=== PATIENT | female | born 1980 | race Caucasian/White ===

== ENCOUNTER 2017-05-03 14:40 | Emergency (ER) | payer OTHER ==
[~2017-05-03] VITALS: Ht 157.5 cm; Wt 56.7 kg
[~2017-05-03 14:40] MED LIST: ACHD5005 PO; AZIT-21 PO; CEPH500C PO; ESTR-19 PO; GERD med; HYDR-2889 PO; HYDR-3583 PO; HYDR-707 PO; IBP800T PO; NAPR-243 PO; PRM5C60 TOP; SULF-222 PO; TRIA16.5 NS
--- OUTSIDE RECORDS SUMMARY | 2017-05-03 14:48 | XMS REPORT | Continuity of Care Document ---
Author Author [facility] Organization [facility] Address Unknown Phone Unavailable Allergies Medications Problems Procedures Results Encounters ACCT No. Visit Date/Time Discharge Status Pt. Type Provider Facility Loc./Unit Complaint [id number] 06/28/2013 02:23:00 2012 02:50:00 DIS Emergency [id number] 06/17/2013 11:17:00 2012 23:59:59 CLS Outpatient [id number] 04/02/2013 13:29:00 2012 15:06:00 DIS Emergency [id number] 03/13/2013 13:21:00 2012 14:45:00 DIS Emergency
[2017-05-03] MEDS ORDERED: NS IV 1000 ML 1,000 ML IV ONE (15:12)
--- NOTE | 2017-05-03 15:12 | ED Fall/Injury ---
General Chief Complaint: Trauma-Non Activation Stated Complaint: HEAD/LT WRIST PAIN,EYE ISSUES Source: patient, family (brother and his girlfriend.) Exam Limitations: no limitations History of Present Illness Time seen by provider: 15:03 Initial Comments Patient has ER by private conveyance with her brother and brother's girlfriend with chief complaint of left wrist pain and a fall yesterday afternoon. She is not sure why she fell she thinks she may have had low blood sugar. She says she is diagnosed 2 years ago in [place] with type 2 diabetes. She did not check her blood sugar at the time but she does know when her blood sugars get low she starts acting loopy and has had falls before. She had a little nausea earlier. She states she's had DKA in the past. She is not on any medications at the time and has been drinking a lot of Gatorade because she's felt nausea and poorly like she might be dehydrated. She does not drink sugar-free Gatorade. She is not sure what her A1c is. She does not have a PCP she has not established that since moving here from [place]. She is not presently having any nausea. No headaches and states she did not hit her head. She did however remain unconscious for up to a minute according to her brother. She says right now the only thing hurting his her left wrist. No fevers or chills that she has had frequency of urine and some diarrhea in the last 3 or 4 days. She has had a modestly productive cough for the past several days as well. She has attributed this to her asthma for which she has a rescue inhaler but was previously on an inhaled steroid. She is not short of breath at this time. She reports occasional alcohol intake with the last drink April 25. She smokes a quarter pack a day as well as occasional marijuana cigarettes. She utilizes IV methamphetamine with the last dose approximately 3-4 months ago. She has tattoos that are not from a licensed parlor in the last time she was checked for hepatitis was prior to leaving the getting the tattoos. Her previous partner had hepatitis. Patient relates she's had a hysterectomy including her tubes and ovaries secondary to cervical cancer and has been in remission for over 5 years. She also is known to have a nodule in her right low and she believes that was seen before that she was told to follow up on but she never did. Allergies and Home Medications Allergies Coded Allergies: Penicillins (Verified Allergy, 05/20/12) diphenhydramine HCl (Verified Allergy, 05/20/12) doxycycline (Verified Allergy, 05/20/12) Home Medications Azithromycin 250 Mg Tab, 2 TAB PO DAILY, #10 FOR INFECTION Prescribed by: GILA FLOOD on 06/28/13 0246 Triamcinolone Acetonide 16.5 Gm [place], 16.5 GM NS BID, #1 FOR SINUSES Prescribed by: GILA FLOOD on 06/28/13 0246 Constitutional: No chills, No diaphoresis, No fever, malaise Eyes: See HPI Ears, Nose, Mouth, Throat: see HPI Respiratory: see HPI, cough, No short of breath, No wheezing Cardiovascular: see HPI, No chest pain, No edema, No palpitations, syncope Gastrointestinal: No abdominal pain, No constipation, No diarrhea, nausea ( yesterday), No vomiting Genitourinary: No discharge, No dysuria, frequency, No hematuria, No incontinence Musculoskeletal: see HPI, No back pain, No joint pain Skin: No pruritus, No rash Psychiatric/Neurological: Denies Headache, Denies Numbness Past Rdbkcew-Kkvbyv-Uisdap Hx Patient Social History Alcohol Use: Occasionally Uses Recreational Drug Use: Yes (last used 3-4 months ago) Drug of Choice: methamphetamine Smoking Status: Current Everyday Smoker Type Used: Cigarettes (.25 ppd) Recent Foreign Travel: No Contact w/Someone Who Travel: No Seasonal Allergies Seasonal Allergies: Yes Surgeries HX Surgeries: Yes (LEEPS, CERVICAL CRYOTHERAPY) Respiratory Hx Respiratory Disorders: No Cardiovascular Hx Cardiac Disorders: No Neurological Hx Neurological Disorders: No Reproductive System Female Reproductive Disorders: Endometriosis [employer] History: Hysterectomy Genitourinary Hx Genitourinary Disorders: Yes (CERVICAL CANCER--S/P SURGERY, NO CHEMO. NO RADIATION) Genitourinary Disorders: UTI-Chronic Gastrointestinal Hx Gastrointestinal Disorders: Yes (CHRONIC PELVIC/ABDOMINAL PAIN) Musculoskeletal Hx Musculoskeletal Disorders: Yes (CHRONIC NECK PAIN/SPASMS) Endocrine Hx Endocrine Disorders: No HEENT HX ENT Disorders: No Cancer Hx Cancer: Yes Cancer: Cervical Psychosocial Hx Psychiatric Problems: No Integumentary HX Skin/Integumentary Disorder: No Blood Transfusions Hx Blood Disorders: No Physical Exam Vital Signs Vital Sign - Last 12Hours 05/03/17 15:09 Temp 97.9 Pulse 92 Resp 18 B/P (MAP) 120/80 Pulse Ox 99 Capillary Refill : General Appearance: WD/WN, no apparent distress HEENT: PERRL/EOMI, normal ENT inspection, pharynx normal Neck: normal inspection, tender midline (soft tissue especially around sternocleidomastoid) Cardiovascular: normal peripheral pulses, regular rate, rhythm, no edema Respiratory: lungs clear, normal breath sounds, no respiratory distress, no accessory muscle use Peripheral Pulses: 3+ Radial Pulses (R), 3+ Radial Pulses (L) Gastrointestinal: normal bowel sounds, non tender, soft Back: normal inspection, no vertebral tenderness Extremities: normal inspection, no pedal edema, normal capillary refill Neurologic/Psychiatric: alert, oriented x 3 Skin: normal color, warm/dry Lymphatic: no adenopathy Progress/Results/Core Measures Results/Orders Lab Results Laboratory Tests Test 05/03/17 14:58 05/03/17 15:42 Range/Units White Blood Count 6.8 4.3-11.0 10^3/uL Red Blood Count 4.63 4.35-5.85 10^6/uL Hemoglobin 12.9 11.5-16.0 G/DL Hematocrit 40 35-52 % Mean Corpuscular Volume 87 80-99 FL Mean Corpuscular Hemoglobin 28 25-34 PG Mean Corpuscular Hemoglobin Concent 32 32-36 G/DL Red Cell Distribution Width 13.6 10.0-14.5 % Platelet Count 248 130-400 10^3/uL Mean Platelet Volume 12.0 H 7.4-10.4 FL Neutrophils (%) (Auto) 63 42-75 % Lymphocytes (%) (Auto) 26 12-44 % Monocytes (%) (Auto) 10 0-12 % Eosinophils (%) (Auto) 1 0-10 % Basophils (%) (Auto) 1 0-10 % Neutrophils # (Auto) 4.2 1.8-7.8 X 10^3 Lymphocytes # (Auto) 1.7 1.0-4.0 X 10^3 Monocytes # (Auto) 0.7 0.0-1.0 X 10^3 Eosinophils # (Auto) 0.1 0.0-0.3 10^3/uL Basophils # (Auto) 0.0 0.0-0.1 10^3/uL Sodium Level 141 135-145 MMOL/L Potassium Level 3.7 3.6-5.0 MMOL/L Chloride Level 106 98-107 MMOL/L Carbon Dioxide Level 29 21-32 MMOL/L Anion Gap 6 5-14 MMOL/L Blood Urea Nitrogen 6 L 7-18 MG/DL Creatinine 0.74 0.60-1.30 MG/DL Estimat Glomerular Filtration Rate > 60 BUN/Creatinine Ratio 8 Glucose Level 91 70-105 MG/DL Calcium Level 9.2 8.5-10.1 MG/DL Phosphorus Level 3.3 2.3-4.7 MG/DL Magnesium Level 2.1 1.8-2.4 MG/DL Total Bilirubin 0.3 0.1-1.0 MG/DL Aspartate Amino Transf (AST/SGOT) 17 5-34 U/L Alanine Aminotransferase (ALT/SGPT) 24 0-55 U/L Alkaline Phosphatase 90 40-136 U/L C-Reactive Protein High Sensitivity 0.11 0.00-0.50 MG/DL Total Protein 7.2 6.4-8.2 GM/DL Albumin 4.0 3.2-4.5 GM/DL Serum Alcohol < 10 <10 MG/DL Urine Color YELLOW Urine Clarity CLEAR Urine pH 8 5-9 Urine Specific [place] 1.010 L 1.016-1.022 Urine Protein NEGATIVE NEGATIVE Urine Glucose (UA) NEGATIVE NEGATIVE Urine Ketones NEGATIVE NEGATIVE Urine Nitrite NEGATIVE NEGATIVE Urine Bilirubin NEGATIVE NEGATIVE Urine Urobilinogen NORMAL NORMAL MG/DL Urine Leukocyte Esterase 2+ H NEGATIVE Urine RBC (Auto) NEGATIVE NEGATIVE Urine RBC NONE /HPF Urine WBC 10-25 H /HPF Urine Squamous Epithelial Cells 2-5 /HPF Urine Crystals NONE /LPF Urine Bacteria TRACE /HPF Urine Casts NONE /LPF Urine Mucus NEGATIVE /LPF Urine Culture Indicated YES Urine Test NEGATIVE NEGATIVE Urine Opiates Screen NEGATIVE NEGATIVE Urine Oxycodone Screen NEGATIVE NEGATIVE Urine Methadone Screen NEGATIVE NEGATIVE Urine Propoxyphene Screen NEGATIVE NEGATIVE Urine Barbiturates Screen NEGATIVE NEGATIVE Ur Tricyclic Antidepressants Screen NEGATIVE NEGATIVE Urine Phencyclidine Screen NEGATIVE NEGATIVE Urine Amphetamines Screen NEGATIVE NEGATIVE Urine Methamphetamines Screen NEGATIVE NEGATIVE Urine Benzodiazepines Screen NEGATIVE NEGATIVE Urine Cocaine Screen NEGATIVE NEGATIVE Urine Cannabinoids Screen POSITIVE H NEGATIVE My Orders Orders - CHAPARRITA GROVER Alcohol (05/03/17 15:12) Cbc With Automated Diff (05/03/17 15:12) Comprehensive Metabolic Panel (05/03/17 15:12) Hs C Reactive Protein (05/03/17 15:12) Drug Screen Stat (Urine) (05/03/17 15:12) Hcg,Qualitative Urine (05/03/17 15:12) Lactic Acid Analyzer (05/03/17 15:12) Magnesium (05/03/17 15:12) Ua Culture If Indicated (05/03/17 15:12) Phosphorus (05/03/17 15:12) Chest Pa/Lat (2 View) (05/03/17 15:12) Saline Lock/Iv-Start (05/03/17 15:12) Ns Iv 1000 Ml (Sodium Chloride 0.9%) (05/03/17 15:12) Acetone,Urine (05/03/17 15:12) Ibuprofen Tablet (Motrin Tablet) (05/03/17 15:30) Wrist, Left, 3 Views Or More (05/03/17 15:54) Urine Culture (05/03/17 15:42) Medications Given in ED Current Medications Medications Dose Ordered Sig/Caitlyn Route Start Time Stop Time Status Last Admin Dose Admin Ibuprofen 800 mg ONCE ONCE PO 05/03/17 15:30 05/03/17 15:31 DC 05/03/17 15:40 800 MG Sodium Chloride 1,000 ml @ 0 mls/hr Q0M ONCE IV 05/03/17 15:12 05/03/17 15:16 DC 05/03/17 15:41 0 MLS/HR Vital Signs/I&O Vital Sign - Last 12Hours 05/03/17 05/03/17 15:09 15:32 Temp 97.9 97.9 Pulse 92 92 Resp 18 18 B/P (MAP) 120/80 120/80 (93) Pulse Ox 99 99 Progress Note : Time: 15:46 Progress Note She is very thin for a type II diabetic as well as Young. With her history of uncontrolled diabetes I am suspicious she may have type I as well and her frequency and nausea may be point to her heading towards DKA. If not she could also be expressing a UTI from uncontrolled diabetes which could explain her symptoms. Diagnostic Imaging Diagonstic Imaging: Xray Plain Films/CT/US/NM/MRI: other (wrist left) Comments [facility] [facility] [place] [place] NAME: LUCINDA SADLER MED REC#: [id number] PT STATUS: REG ER : 1980 PHYSICIAN: CAHPARRITA GROVER MD ADMIT DATE: 05/03/17/ER Draft Date of Exam:05/03/17 WRIST, LEFT, 3 VIEWS OR MORE INDICATION: Injury to left wrist. EXAMINATION: AP, oblique, and lateral views of the left wrist are obtained. FINDINGS: No fracture or acute bony abnormality is seen. IMPRESSION: Negative left wrist. Dictated on workstation # [id number] Dict: 05/03/17 1601 Trans: 05/03/17 1603 [facility] [id number] Interpreted by: ANN ESTRADA MD Electronically signed by: Reviewed: Reviewed by Me Diagonstic Imaging: Xray Plain Films/CT/US/NM/MRI: chest Comments NAME: LUCINDA SADLER MED REC#: [id number] PHYSICIAN: CHAPARRITA GROVER MD CC: MYRTLE GUNTER MD; CHAPARRITA GROVER Page 1 of 1 RADIOLOGY REPORT [facility]IA [place], [place] CC: MYRTLE GUNTER MD; CHAPARRITA GROVER Page 1 of 1 RADIOLOGY REPORT NAME: LUCINDA SADLER MED REC#: [id number] PT STATUS: REG ER : 1980 PHYSICIAN: CHAPARRITA GROVER MD ADMIT DATE: 05/03/17/ER Signed Date of Exam: 05/03/17 CHEST PA/LAT (2 VIEW) PA and lateral views of the chest Indication: Fall. comparison 12/27/12 Findings: There is a 5 mm calcified, in the right lung base similar to 2013 exam with no significant change. Otherwise the lungs are clear. The heart size is normal. There is no effusion or pneumothorax The mediastinum and shital appear unremarkable. Impression: No acute process. Dictated by: Dictated on workstation # [id number] Dict: 05/03/17 1558 Trans: 05/03/17 1559 Interpreted by: MYRTLE GUNTER MD Electronically signed by: MYRTLE GUNTER MD 05/03/17 1559 Reviewed: Reviewed by Me Departure Impression Impression: Primary Impression: Fall Qualified Codes: W19.XXXA - Unspecified fall, initial encounter Additional Impressions: Syncope Qualified Codes: R55 - Syncope and collapse UTI (urinary tract infection) Qualified Codes: N30.00 - Acute cystitis without hematuria Disposition: 01 HOME, SELF-CARE Condition: Stable Departure-Patient Inst. Decision time for Depature: 16:25 Referrals: NO,LOCAL PHYSICIAN (PCP) Primary Care Physician Patient Instructions: Urinary Tract Infection, Adult (DC) Add. Discharge Instructions: You have a urinary tract infection. If you've had these multiple times recently this would require more workup by your primary care physician. One possible cause of your UTI and passing out would be blood sugars that are out of control and elevated. The Reason you passed out is not entirely understood at this time however a likely scenario is that your sugars might have plummeted low or you might have gotten dehydrated from having high sugars that can causes you to urinate too frequently and become dehydrated. Getting your sugars under better control will probably help alleviate both the frequent UTIs and the risk of passing out and falling. Make sure you are drinking plenty of fluids and avoiding sugars and carbohydrates. Establish with a primary care physician in follow-up within the next 2 weeks if possible. Return to the ER if you're having fevers or chills or nausea and vomiting or any other worrisome symptoms. Take the antibiotics twice a day with food until complete. All discharge instructions reviewed with patient and/or family. Voiced understanding. Scripts Albuterol Sulfate (VENTOLIN HFA) 1 Puff Puff 2 PUFF IH Q4H Y for WHEEZING, #1 EACH 0 Refills 1 PUFF = 90 MCG Prov: CHAPARRITA GROVER 05/03/17 Cephalexin (Keflex) 500 Mg Capsule 500 MG PO BID for 7 Days, #14 CAP 0 Refills Prov: CHAPARRITA GROVER 05/03/17 CHAPARRITA GROVER May 03, 2017 15:11
[2017-05-03 15:20] LABS: BASOPHILS % (AUTO) 1 % (0-10); EOSINOPHILS # (AUTO) 0.1 10^3/uL (0.0-0.3); EOSINOPHILS % (AUTO) 1 % (0-10); LYMPHOCYTES # (AUTO) 1.7 X 10^3 (1.0-4.0); LYMPHOCYTES % (AUTO) 26 % (12-44); MEAN CORPUSCULAR HEMOGLOBIN 28 PG (25-34); MEAN CORPUSCULAR HGB CONC 32 G/DL (32-36); MEAN CORPUSCULAR VOLUME 87 FL (80-99); MONOCYTES # (AUTO) 0.7 X 10^3 (0.0-1.0); MONOCYTES % (AUTO) 10 % (0-12); NEUTROPHILS # (AUTO) 4.2 X 10^3 (1.8-7.8); NEUTROPHILS % (AUTO) 63 % (42-75); PLATELET COUNT 248 10^3/uL (130-400); RED BLOOD COUNT 4.63 10^6/uL (4.35-5.85); RED CELL DISTRIBUTION WIDTH 13.6 % (10.0-14.5); WHITE BLOOD COUNT 6.8 10^3/uL (4.3-11.0)
[2017-05-03] MEDS ORDERED: IBUPROFEN 800 MG (MOTRIN) TAB PO ONE (15:30)
[2017-05-03 15:34] LABS: ALANINE AMINOTRANSFERASE 24 U/L (0-55); ALCOHOL < 10 MG/DL (<10); ANION GAP 6 MMOL/L (5-14); ASPARTATE AMINO TRANSFERASE 17 U/L (5-34); BILIRUBIN,TOTAL 0.3 MG/DL (0.1-1.0); BLOOD UREA NITROGEN 6 MG/DL (7-18); BUN/CREATININE RATIO 8; CALCIUM 9.2 MG/DL (8.5-10.1); CARBON DIOXIDE 29 MMOL/L (21-32); CHLORIDE 106 MMOL/L (98-107); CREATININE SERUM 0.74 MG/DL (0.60-1.30); GFR ESTIMATED > 60; GLUCOSE 91 MG/DL (70-105); MAGNESIUM 2.1 MG/DL (1.8-2.4); PHOSPHORUS 3.3 MG/DL (2.3-4.7); POTASSIUM 3.7 MMOL/L (3.6-5.0); SODIUM 141 MMOL/L (135-145); TOTAL PROTEIN 7.2 GM/DL (6.4-8.2); hs C REACTIVE PROTEIN 0.11 MG/DL (0.00-0.50)
[2017-05-03 15:50] LABS: BILIRUBIN,URINE NEGATIVE (NEGATIVE); KETONES,URINE NEGATIVE (NEGATIVE); LEUKOCYTE ESTERASE ,URINE 2+ (NEGATIVE); NITRITE,URINE NEGATIVE (NEGATIVE); PH,URINE 8 (5-9); PROTEIN,URINE NEGATIVE (NEGATIVE); UROBILINOGEN,URINE NORMAL (NORMAL)
--- NOTE | 2017-05-03 16:02 | Diagnostic Imaging Report ---
PA and lateral views of the chest Indication: Fall. comparison 12/27/12 Findings: There is a 5 mm calcified, in the right lung base similar to 2013 exam with no significant change. Otherwise the lungs are clear. The heart size is normal. There is no effusion or pneumothorax The mediastinum and shital appear unremarkable. Impression: No acute process. Dictated by: Dictated on workstation # [id number]
--- NOTE | 2017-05-03 16:03 | Diagnostic Imaging Report ---
INDICATION: Injury to left wrist. EXAMINATION: AP, oblique, and lateral views of the left wrist are obtained. FINDINGS: No fracture or acute bony abnormality is seen. IMPRESSION: Negative left wrist. Dictated by: Dictated on workstation # [id number]
[2017-05-03] MEDS ORDERED: RT-ALBUINH IH (16:38)
[2017-05-03] MEDS ORDERED: CEPH-507 PO (16:38)
[2017-05-03 17:02] VITALS: BP 123/85
== END 2017-05-03 17:02 | disposition home or self-care (01) ==
LOC: EDUNIT# 14:40 → ER 14:44
DX: M25.531 Pain in right wrist (principal); R55 Syncope and collapse; N39.0 Urinary tract infection, site not specified; C53.9 Malignant neoplasm of cervix uteri, unspecified; E11.9 Type 2 diabetes mellitus without complications; F17.210 Nicotine dependence, cigarettes, uncomplicated; F15.90 Other stimulant use, unspecified, uncomplicated; Z90.710 Acquired absence of both cervix and uterus; Z90.722 Acquired absence of ovaries, bilateral; W18.30XA Fall on same level, unspecified, initial encounter
CPT/HCPCS: 36415; 71020; 73110; 80053; 80306; 80320; 81000; 81002; 83735; 84100; 84703; 85025; 86141; 87088; 96360

== ENCOUNTER 2017-05-08 19:36 | Emergency (ER) | payer OTHER ==
[~2017-05-08] VITALS: Ht 157.5 cm; Wt 56.7 kg
[~2017-05-08 19:36] MED LIST changes: +CEPH-507 PO; +RT-ALBUINH IH
--- NOTE | 2017-05-08 20:03 | ED General ---
General Chief Complaint: General Problems/Pain Stated Complaint: LT FOOT GREAT TOE PAIN Nursing Triage Note: PT AMBUALTED TO ROOM. PT STATES SHE CLIPPED HER TOENAILS YESTERDAY AND NOTICED HER LEFT BIG TOENAIL "ISN'T CONNECTED". PT STATES SHE IS A DIABETIC AND TAKES METFORMIN BUT RAN OUT OF PILLS. SO SHE IS JUST CONCERNED AND WANTS TO MAKE SURE NOTHING IS WRONG AT THIS TIME. Nursing Sepsis Screen: No Definite Risk Source of Information: Patient Exam Limitations: No Limitations History of Present Illness Time Seen by Provider: 19:58 Initial Comments To ER with an ingrown toenail on the left foot. She states that she clipped her toenails yesterday and upon doing so noticed that it was "not connected". He is a diabetic. She also reports that her urine is dark in color. Timing/Duration: 1-2 Days Severity: Moderate Allergies and Home Medications Allergies Coded Allergies: Penicillins (Verified Allergy, 05/20/12) diphenhydramine HCl (Verified Allergy, 05/20/12) doxycycline (Verified Allergy, 05/20/12) Home Medications Albuterol Sulfate 1 Puff Puff, 2 PUFF IH Q4H PRN for WHEEZING, #1 Ref 0 1 PUFF = 90 MCG Prescribed by: CHAPARRITA GROVER on 05/03/17 1638 Azithromycin 250 Mg Tab, 2 TAB PO DAILY, #10 FOR INFECTION Prescribed by: GILA FLOOD on 06/28/13 0246 Cephalexin 500 Mg Capsule, 500 MG PO BID for 7 Days, #14 Ref 0 Prescribed by: CHAPARRITA GROVER on 05/03/17 1638 Triamcinolone Acetonide 16.5 Gm [place], 16.5 GM NS BID, #1 FOR SINUSES Prescribed by: GILA FLOOD on 06/28/13 0246 Constitutional: see HPI, No chills EENTM: see HPI Respiratory: no symptoms reported Cardiovascular: no symptoms reported Genitourinary: no symptoms reported Musculoskeletal: no symptoms reported Skin: see HPI Psychiatric/Neurological: No Symptoms Reported Hematologic/Lymphatic: No Symptoms Reported Past Oyygnsh-Nqooto-Ersisb Hx Patient Social History Alcohol Use: Denies Use Recreational Drug Use: No Drug of Choice: methamphetamine Smoking Status: Current Everyday Smoker Type Used: Cigarettes 2nd Hand Smoke Exposure: Yes Recent Foreign Travel: No Contact w/Someone Who Travel: No Recent Infectious Disease Expo: No Recent Hopitalizations: No Seasonal Allergies Seasonal Allergies: Yes Surgeries HX Surgeries: Yes (LEEPS, CERVICAL CRYOTHERAPY) Surgeries: Appendectomy, Hysterectomy Respiratory Hx Respiratory Disorders: No Respiratory Disorders: Asthma, Tuberculosis Cardiovascular Hx Cardiac Disorders: No Neurological Hx Neurological Disorders: No Reproductive System Female Reproductive Disorders: Endometriosis QUALITY REP History: Hysterectomy Genitourinary Hx Genitourinary Disorders: Yes (CERVICAL CANCER--S/P SURGERY, NO CHEMO. NO RADIATION) Genitourinary Disorders: UTI-Chronic Gastrointestinal Hx Gastrointestinal Disorders: Yes (CHRONIC PELVIC/ABDOMINAL PAIN) Musculoskeletal Hx Musculoskeletal Disorders: Yes (CHRONIC NECK PAIN/SPASMS) Endocrine Hx Endocrine Disorders: No Endocrine Disorders: Diabetes, Non-Insulin dep HEENT HX ENT Disorders: No Cancer Hx Cancer: Yes Cancer: Cervical Psychosocial Hx Psychiatric Problems: No Integumentary HX Skin/Integumentary Disorder: No Blood Transfusions Hx Blood Disorders: No Physical Exam Vital Signs Vital Sign - Last 12Hours 05/08/17 19:48 Temp 97.6 Pulse 86 Resp 20 B/P (MAP) 106/65 Pulse Ox 98 O2 Delivery Room Air Capillary Refill : Less Than 3 Seconds General Appearance: No Apparent Distress, WD/WN Eyes: Bilateral Eye EOMI, Bilateral Eye Normal Inspection, Bilateral Eye PERRL HEENT: PERRL/EOMI, TMs Normal Neck: Full Range of Motion Respiratory: No Accessory Muscle Use, No Respiratory Distress Gastrointestinal: Non Tender, Soft Extremity: Normal Capillary Refill, Other (there is an ingrown toenail on the great toe. There is no redness or swelling. Minimal tenderness to palpation. Since she is a diabetic I am hesitant to remove any portion of the nail. We will have her place cotton from a cotton ball underneath the ingrown portion of the toenail and I have discussed with her how to do this.) Neurologic/Psychiatric: Alert, Oriented x3, No Motor/Sensory Deficits Skin: Normal Color, Warm/Dry Progress/Results/Core Measures Results/Orders Lab Results Laboratory Tests Test 05/08/17 20:00 Range/Units Urine Color YELLOW Urine Clarity CLEAR Urine pH 5 5-9 Urine Specific [place] 1.030 H 1.016-1.022 Urine Protein 2+ H NEGATIVE Urine Glucose (UA) NEGATIVE NEGATIVE Urine Ketones NEGATIVE NEGATIVE Urine Nitrite NEGATIVE NEGATIVE Urine Bilirubin 1+ H NEGATIVE Urine Urobilinogen 1 NORMAL MG/DL Urine Leukocyte Esterase 3+ H NEGATIVE Urine RBC (Auto) 1+ H NEGATIVE Urine RBC 5-10 H /HPF Urine WBC >100 H /HPF Urine Squamous Epithelial Cells 5-10 /HPF Urine Crystals NONE /LPF Urine Bacteria MODERATE H /HPF Urine Casts NONE /LPF Urine Mucus NEGATIVE /LPF Urine Culture Indicated YES Urine Opiates Screen NEGATIVE NEGATIVE Urine Oxycodone Screen NEGATIVE NEGATIVE Urine Methadone Screen NEGATIVE NEGATIVE Urine Propoxyphene Screen NEGATIVE NEGATIVE Urine Barbiturates Screen NEGATIVE NEGATIVE Ur Tricyclic Antidepressants Screen NEGATIVE NEGATIVE Urine Phencyclidine Screen NEGATIVE NEGATIVE Urine Amphetamines Screen POSITIVE H NEGATIVE Urine Methamphetamines Screen POSITIVE H NEGATIVE Urine Benzodiazepines Screen NEGATIVE NEGATIVE Urine Cocaine Screen NEGATIVE NEGATIVE Urine Cannabinoids Screen POSITIVE H NEGATIVE My Orders Orders - CARISSA MATTHEW APRN Ua Culture If Indicated (05/08/17 19:57) Urine Bedside (05/08/17 19:57) Drug Screen Stat (Urine) (05/08/17 19:57) Urine Culture (05/08/17 20:00) Vital Signs/I&O Vital Sign - Last 12Hours 05/08/17 19:48 Temp 97.6 Pulse 86 Resp 20 B/P (MAP) 106/65 Pulse Ox 98 O2 Delivery Room Air Blood Pressure Mean: 79 Departure Communication Progress Notes I have handwritten her a prescription for Bactrim suspension because she states she cannot take Bactrim pills and does not want to crush this. Impression Impression: Primary Impression: Ingrown toenail Additional Impression: Urinary tract infection Disposition: 01 HOME, SELF-CARE Condition: Stable Departure-Patient Inst. Decision time for Depature: 20:00 Referrals: NO,LOCAL PHYSICIAN (PCP) Primary Care Physician Patient Instructions: Ingrown Toenail Add. Discharge Instructions: 1. Return to ER for any worsening 2. Follow-up with your doctor next week 3. All discharge instructions reviewed with patient and/or family. Voiced understanding. CARISSA MATTHEW APRN May 08, 2017 20:03
[2017-05-08 20:04] LABS: BILIRUBIN,URINE 1+ (NEGATIVE); KETONES,URINE NEGATIVE (NEGATIVE); LEUKOCYTE ESTERASE ,URINE 3+ (NEGATIVE); NITRITE,URINE NEGATIVE (NEGATIVE); PH,URINE 5 (5-9); PROTEIN,URINE 2+ (NEGATIVE); UROBILINOGEN,URINE 1 MG/DL (NORMAL)
[2017-05-08 20:17] LABS: WBC,URINE >100 /HPF
[2017-05-08 20:22] VITALS: BP 106/65
== END 2017-05-08 20:22 | disposition home or self-care (01) ==
LOC: EDUNIT# 19:36 → ER 19:37
DX: L60.0 Ingrowing nail (principal); N39.0 Urinary tract infection, site not specified; E11.9 Type 2 diabetes mellitus without complications; J45.909 Unspecified asthma, uncomplicated; F17.210 Nicotine dependence, cigarettes, uncomplicated; F15.90 Other stimulant use, unspecified, uncomplicated; Z85.41 Personal history of malignant neoplasm of cervix uteri; Z90.710 Acquired absence of both cervix and uterus; Z90.49 Acquired absence of other specified parts of digestive tract
CPT/HCPCS: 80306; 81000; 84703; 87088; 99282

== ENCOUNTER 2019-06-18 23:31 | Emergency (ER) | payer SELFPAY ==
[~2019-06-18] VITALS: Ht 157.5 cm; Wt 56.7 kg
[2019-06-19 00:06] LABS: BASOPHILS % (AUTO) 0 % (0-10); EOSINOPHILS # (AUTO) 0.1 10^3/uL (0.0-0.3); EOSINOPHILS % (AUTO) 1 % (0-10); HEMATOCRIT 37 % (35-52); HEMOGLOBIN 11.9 G/DL (11.5-16.0); LYMPHOCYTES % (AUTO) 26 % (12-44); MEAN CORPUSCULAR HEMOGLOBIN 29 PG (25-34); MEAN CORPUSCULAR HGB CONC 32 G/DL (32-36); MEAN CORPUSCULAR VOLUME 90 FL (80-99); MEAN PLATELET VOLUME 11.3 FL (7.4-10.4); MONOCYTES # (AUTO) 0.6 X 10^3 (0.0-1.0); MONOCYTES % (AUTO) 8 % (0-12); NEUTROPHILS % (AUTO) 65 % (42-75); PLATELET COUNT 241 10^3/uL (130-400); RED CELL DISTRIBUTION WIDTH 13.3 % (10.0-14.5); WHITE BLOOD COUNT 7.8 10^3/uL (4.3-11.0)
[2019-06-19 00:23] LABS: ALANINE AMINOTRANSFERASE 21 U/L (0-55); ALBUMIN 4.1 GM/DL (3.2-4.5); ALKALINE PHOSPHATASE 75 U/L (40-136); BILIRUBIN,TOTAL 0.3 MG/DL (0.1-1.0); BUN/CREATININE RATIO 7; CARBON DIOXIDE 28 MMOL/L (21-32); CHLORIDE 104 MMOL/L (98-107); CREATININE SERUM 0.84 MG/DL (0.60-1.30); GFR ESTIMATED > 60; GLUCOSE 103 MG/DL (70-105); POTASSIUM 3.9 MMOL/L (3.6-5.0); SODIUM 142 MMOL/L (135-145); TOTAL PROTEIN 7.1 GM/DL (6.4-8.2)
[2019-06-19 00:36] LABS: BILIRUBIN,URINE NEGATIVE (NEGATIVE); CLARITY,URINE CLEAR; COLOR,URINE YELLOW; GLUCOSE, URINE (UA) NEGATIVE (NEGATIVE); KETONES,URINE NEGATIVE (NEGATIVE); LEUKOCYTE ESTERASE ,URINE 1+ (NEGATIVE); NITRITE,URINE NEGATIVE (NEGATIVE); PH,URINE 6 (5-9); PROTEIN,URINE NEGATIVE (NEGATIVE); UROBILINOGEN,URINE 1 MG/DL (NORMAL)
[2019-06-19] MEDS ORDERED: CLINDAMYCIN 150 MG (CLEOCIN) CAP PO ONE (00:45)
[2019-06-19 00:46] LABS: BACTERIA,URINE TRACE /HPF; RBC,URINE RARE /HPF; WBC,URINE RARE /HPF
[2019-06-19] MEDS ORDERED: KETOROLAC 30 MG/ML VIAL IVP ONE (01:00)
[2019-06-19] MEDS ORDERED: CEPH-507 PO (01:01)
--- NOTE | 2019-06-19 01:02 | ED General ---
General Chief Complaint: Glucose Problems Stated Complaint: FACE SWELLING,BLOOD SUGAR FLUCTUATING,WOODY,BALANCE O Nursing Triage Note: Pt amb to room #5 w/o difficulty with c/o intermittent headache, diaphoresis, dizziness, headache, and nausea she believes to be to associated with her blood sugar. Reports swelling to rt cheak and intermittent rt sided tooth pain. Pt reports she does not check her blood sugar nor take medcation. Nursing Sepsis Screen: No Definite Risk Source of Information: Patient Exam Limitations: No Limitations History of Present Illness Date Seen by Provider: Jun 18, 2019 Time Seen by Provider: 23:42 Initial Comments This 38-year-old woman presents to the emergency room with complaints of intermittent headache, dizziness, nausea, and diaphoresis which she believes to be related to blood sugar fluctuations. She states a prior diagnosis of diabetes but has not been treated for in 2 years. In fact she has not seen a primary care provider in at least 2 years per her report. She complains of having these intermittent episodes for about one month. Her significant other reports subjective fever. She denies any alcohol use but admits to tobacco, marijuana, and methamphetamine use. She injected methamphetamines most recently couple of days ago. She is afebrile at present. She also complains of some facial swelling around the right maxilla. She does have poor dentition but does not have a significant amount of pain in that area. Allergies and Home Medications Allergies Coded Allergies: Penicillins (Verified Allergy, 05/20/12) diphenhydramine HCl (Verified Allergy, 05/20/12) doxycycline (Verified Allergy, 05/20/12) Home Medications Albuterol Sulfate 1 Puff Puff, 2 PUFF IH Q4H PRN for WHEEZING 1 PUFF = 90 MCG Prescribed by: CHAPARRITA GROVER on 05/03/17 1638 Azithromycin 250 Mg Tab, 2 TAB PO DAILY FOR INFECTION Prescribed by: GILA FLOOD on 06/28/13 024 Cephalexin 500 Mg Capsule, 500 MG PO BID Prescribed by: CHAPARRITA GROVER on 05/03/17 1638 Cephalexin 500 Mg Capsule, 500 MG PO QID Prescribed by: KIERAN MARTIN on 06/19/19 0101 Triamcinolone Acetonide 16.5 Gm Darragh, 16.5 GM NS BID FOR SINUSES Prescribed by: GILA FLOOD on 06/28/13 024 Patient Home Medication List Home Medication List Reviewed: Yes Review of Systems Review of Systems Constitutional: no symptoms reported EENTM: see HPI Respiratory: no symptoms reported Cardiovascular: no symptoms reported Gastrointestinal: see HPI Genitourinary: no symptoms reported Musculoskeletal: no symptoms reported Skin: no symptoms reported Psychiatric/Neurological: See HPI Hematologic/Lymphatic: No Symptoms Reported Immunological/Allergic: no symptoms reported Past Vxvqkaw-[id number]-Ddjoak Hx Past Med/Social Hx: Reviewed and Corrections made Patient Social History Drug of Choice: methamphetamine Type Used: Cigarettes 2nd Hand Smoke Exposure: Yes Recent Foreign Travel: No Contact w/Someone Who Travel: No Recent Infectious Disease Expo: No Recent Hopitalizations: No Seasonal Allergies Seasonal Allergies: Yes Past Medical History Surgeries: Yes (LEEPS, CERVICAL CRYOTHERAPY) Appendectomy, Hysterectomy Respiratory: Yes Asthma, Tuberculosis Cardiac: No Neurological: No Reproductive Disorders: Yes Female Reproductive Disorders: Endometriosis [employer] History: Hysterectomy Genitourinary: Yes UTI-Chronic Gastrointestinal: Yes (CHRONIC PELVIC/ABDOMINAL PAIN) Musculoskeletal: Yes (CHRONIC NECK PAIN/SPASMS) Endocrine: Yes Diabetes, Non-Insulin dep HEENT: No Cancer: Yes Cervical Did You Recieve Any Treatments: Yes What Type of Treatment Did You: Surgical Intervention Psychosocial: No Integumentary: No Blood Disorders: No Physical Exam Vital Signs Vital Signs - First Documented 06/18/19 06/19/19 23:40 01:18 Temp 96.9 Pulse 80 Resp 15 B/P (MAP) 102/73 (83) Pulse Ox 98 O2 Delivery Room Air Capillary Refill : Less Than 3 Seconds Height, Weight, BMI Height: 5'2.00" Weight: 125lbs. oz. 56.619017pd; 21.95 BMI Method:Stated General Appearance: No Apparent Distress, WD/WN, Thin HEENT: PERRL/EOMI, TMs Normal, Normal ENT Inspection, Other (very poor dentitio n with numerous severely decayed teeth. Swelling over the right maxilla) Neck: Normal Inspection, Non Tender, Lymphadenopathy (R) Respiratory: Lungs Clear, Normal Breath Sounds, No Accessory Muscle Use, No Respiratory Distress Cardiovascular: Regular Rate, Rhythm, No Edema, No Murmur Gastrointestinal: Normal Bowel Sounds, Non Tender, Soft Extremity: Normal Capillary Refill, Normal Inspection, No Pedal Edema Neurologic/Psychiatric: Alert, Oriented x3, No Motor/Sensory Deficits, Normal Mood/Affect, e m assembler II-XII Norm as Tested Skin: Normal Color, Warm/Dry Progress/Results/Core Measures Suspected Sepsis Recent Fever Within 48 Hours: No Infection Criteria Present: Suspected New Infection New/Unexplained Altered Menta: No Sepsis Screen: No Definite Risk SIRS Temperature:96.9 Pulse: 80 Respiratory Rate: 15 Laboratory Tests 06/18/19 23:56: White Blood Count 7.8 Blood Pressure / Mean: Laboratory Tests 06/18/19 23:56: Creatinine 0.84, Platelet Count 241, Total Bilirubin 0.3 Results/Orders Lab Results Laboratory Tests Test 06/18/19 23:56 06/19/19 00:25 Range/Units White Blood Count 7.8 4.3-11.0 10^3/uL Red Blood Count 4.13 L 4.35-5.85 10^6/uL Hemoglobin 11.9 11.5-16.0 G/DL Hematocrit 37 35-52 % Mean Corpuscular Volume 90 80-99 FL Mean Corpuscular Hemoglobin 29 25-34 PG Mean Corpuscular Hemoglobin Concent 32 32-36 G/DL Red Cell Distribution Width 13.3 10.0-14.5 % Platelet Count 241 130-400 10^3/uL Mean Platelet Volume 11.3 H 7.4-10.4 FL Neutrophils (%) (Auto) 65 42-75 % Lymphocytes (%) (Auto) 26 12-44 % Monocytes (%) (Auto) 8 0-12 % Eosinophils (%) (Auto) 1 0-10 % Basophils (%) (Auto) 0 0-10 % Neutrophils # (Auto) 5.0 1.8-7.8 X 10^3 Lymphocytes # (Auto) 2.0 1.0-4.0 X 10^3 Monocytes # (Auto) 0.6 0.0-1.0 X 10^3 Eosinophils # (Auto) 0.1 0.0-0.3 10^3/uL Basophils # (Auto) 0.0 0.0-0.1 10^3/uL Sodium Level 142 135-145 MMOL/L Potassium Level 3.9 3.6-5.0 MMOL/L Chloride Level 104 98-107 MMOL/L Carbon Dioxide Level 28 21-32 MMOL/L Anion Gap 10 5-14 MMOL/L Blood Urea Nitrogen 6 L 7-18 MG/DL Creatinine 0.84 0.60-1.30 MG/DL Estimat Glomerular Filtration Rate > 60 BUN/Creatinine Ratio 7 Glucose Level 103 70-105 MG/DL Glucometer 101 70-110 MG/DL Calcium Level 9.0 8.5-10.1 MG/DL Corrected Calcium 8.9 8.5-10.1 MG/DL Total Bilirubin 0.3 0.1-1.0 MG/DL Aspartate Amino Transf (AST/SGOT) 16 5-34 U/L Alanine Aminotransferase (ALT/SGPT) 21 0-55 U/L Alkaline Phosphatase 75 40-136 U/L C-Reactive Protein High Sensitivity 0.12 0.00-0.50 MG/DL Total Protein 7.1 6.4-8.2 GM/DL Albumin 4.1 3.2-4.5 GM/DL Urine Color YELLOW Urine Clarity CLEAR Urine pH 6 5-9 Urine Specific [place] 1.020 1.016-1.022 Urine Protein NEGATIVE NEGATIVE Urine Glucose (UA) NEGATIVE NEGATIVE Urine Ketones NEGATIVE NEGATIVE Urine Nitrite NEGATIVE NEGATIVE Urine Bilirubin NEGATIVE NEGATIVE Urine Urobilinogen 1 NORMAL MG/DL Urine Leukocyte Esterase 1+ H NEGATIVE Urine RBC (Auto) NEGATIVE NEGATIVE Urine RBC RARE /HPF Urine WBC RARE /HPF Urine Squamous Epithelial Cells 5-10 /HPF Urine Crystals NONE /LPF Urine Bacteria TRACE /HPF Urine Casts NONE /LPF Urine Mucus SMALL H /LPF Urine Culture Indicated NO My Orders Orders - KIERAN SMITH MD Ed Iv/Invasive Line Start (06/18/19 23:55) Cbc With Automated Diff (06/18/19 23:55) Comprehensive Metabolic Panel (06/18/19 23:55) Hs C Reactive Protein (06/18/19 23:55) Ua Culture If Indicated (06/18/19 23:55) Clindamycin Capsule (Cleocin Capsule) (06/19/19 00:45) Ketorolac Injection (Toradol Injection) (06/19/19 01:00) Medications Given in ED Current Medications Medications Dose Ordered Sig/Caitlyn Route Start Time Stop Time Status Last Admin Dose Admin Clindamycin HCl 450 mg ONCE ONCE PO 06/19/19 00:45 06/19/19 00:46 DC 06/19/19 00:52 450 MG Ketorolac Tromethamine 15 mg ONCE ONCE IVP 06/19/19 01:00 06/19/19 01:01 DC 06/19/19 01:00 15 MG Vital Signs/I&O 06/18/19 06/19/19 23:40 01:18 Temp 96.9 96.9 Pulse 80 80 Resp 15 15 B/P (MAP) 102/73 (83) Pulse Ox 98 98 O2 Delivery Room Air Room Air Capillary Refill : Less Than 3 Seconds Progress Note : Progress Note Workup was relatively unremarkable. I stressed the importance of following up with a primary care provider and a dentist. Patient would benefit from establishing with the [facility] where she could receive primary care services, dental services, and substance abuse treatment. She does express interest in treatment for substance abuse. She was given a dose of clindamycin for suspected dental abscess causing the maxillary swelling on the right. A pre scription for Keflex was also sent in. She has a penicillin allergy but states she can take Keflex. Departure Impression Primary Impression: Dental abscess Additional Impressions: Acute headache Qualified Codes: R51 - Headache Polysubstance abuse Disposition: HOME, SELF-CARE Condition: Improved Departure-Patient Inst. Decision time for Depature: 01:00 Referrals: [facility] (PCP/Family) Primary Care Physician Patient Instructions: Tooth Abscess (DC) Add. Discharge Instructions: Dental abscesses suspected as the cause of your pain and swelling. Complete antibiotics as prescribed. Please contact the [facility] to establish with a primary care provider, to follow-up with the dentist, and to inquire about substance abuse treatment and counseling. Return to care if you have worsening symptoms, especially if you develop fever over 100 or escalating facial pain and swelling. You may take ibuprofen and/or Tylenol (acetaminophen) for your pain. All discharge instructions reviewed with patient and/or family. Voiced understanding. Scripts Cephalexin (Keflex) 500 Mg Capsule 500 MG PO QID, #40 CAP Prov: KIERAN SMITH MD 06/19/19 KIERAN SMITH MD Jun 19, 2019 01:02
[2019-06-19 01:18] VITALS: BP 102/73
== END 2019-06-19 01:18 | disposition home or self-care (01) ==
LOC: EDUNIT# 23:31 → ER 23:35
DX: K04.7 Periapical abscess without sinus (principal); R51 Headache; F12.10 Cannabis abuse, uncomplicated; F15.10 Other stimulant abuse, uncomplicated; E11.9 Type 2 diabetes mellitus without complications; J45.909 Unspecified asthma, uncomplicated; Z85.41 Personal history of malignant neoplasm of cervix uteri; Z87.442 Personal history of urinary calculi; Z88.0 Allergy status to penicillin; Z88.1 Allergy status to other antibiotic agents; Z88.8 Allergy status to other drugs, medicaments and biological substances; Z77.22 Contact with and (suspected) exposure to environmental tobacco smoke (acute) (chronic); Z90.49 Acquired absence of other specified parts of digestive tract
CPT/HCPCS: 36415; 80053; 81000; 82962; 85025; 86141